=== PATIENT | female | born 1960 | race Caucasian/White ===

== ENCOUNTER 2024-04-11 08:16 | Observation (INO) | payer SELFPAY ==
[~2024-04-11] VITALS: Ht 167.6 cm; Wt 129.3 kg
--- NOTE | 2024-04-11 08:38 | EKG ---
[facility] Test Date: 2024-04-11 Test Time: 08:16:45 Pat Name: OCTAVIA PIZANO Department: ED Room: 427 Gender: F Quality Lab Technician: [id number] : 1960 Requested By: MICHELLE RAMIREZ Order Number: [id number] Reading MD: Dede Weston Measurements Intervals [place] Rate: 80 P: 63 NV: 145 QRS: 17 QRSD: 83 T: 17 QT: 402 QTc: 465 Interpretive Statements Sinus rhythm No previous ECG available for comparison Electronically Signed On 04-13-2024 08:37:52 COMPUTER INFORMATION SYSTEMS PROFESSOR by Dede Weston Please click the below link to view image of tracing.
--- NOTE | 2024-04-11 08:53 | ERN ---
ED Note History of Present Illness Stated Complaint: CHEST PAIN Chief Complaint: Chest Pain Time Seen by MD: 08:46 Dictation: The patient is a 63-year-old female patient with the past medical history of hypertension presented to the emergency department, primarily complaining of chest pain and dizziness. The chest pain, which began today, is characterized as a pressure sensation rated at 6 out of 10, radiating to her left arm. She has experienced dizziness throughout the week, with the initial episode occurring last Monday. The patient describes the sensation as a spinning feeling, prompting her to avoid any head movements. She has recorded elevated blood pressure readings at home over the past week with the highest SBP in 170s. Additionally, she reports feelings of impending faintness and difficulty in articulating her thoughts. The patient has not consulted a healthcare provider in the last four years due to a lack of insurance. She denies any history of acid reflux, shortness of breath, swelling, numbness, or tingling, and has no prior occurrences of similar health issues. She denies any history of alcohol, smoking, or drug abuse. Allergies: Coded Allergies: No Known Drug Allergies (Unverified Allergy, Unknown, 04/11/24) Past Medical History Past Medical History: No Pertinent History Surgical History: Cholecystectomy Review of System Dictation REVIEW OF SYSTEMS CONSTITUTIONAL: Denies fevers, chills, or night sweats. No unintentional weight loss reported. NEUROLOGICAL: Complaints of dizziness, vertigo/spinning sensation, Denies headache, amaurosis fugax, motor weakness, sensory deficit, gait abnormalities, or tremors. ENT: No hearing loss, otalgia, otorrhea, rhinitis, rhinorrhea, hoarseness, or sore throat. CARDIOVASCULAR: Complaints of pressure type of chest pain radiating to the left arm, Denies any exertional angina, dyspnea on exertion, orthopnea, paroxysmal nocturnal dyspnea, palpitations, life-threatening arrhythmias, claudication. PULMONARY: Denies any shortness of breath, cough, phlegm/sputum, hemoptysis, pleuritic chest pain. SLEEP: Denies morning headaches, daytime somnolence or napping. Denies difficulty falling asleep, staying asleep, waking from sleep. Denies knowledge of snoring. GASTROINTESTINAL: Denies any type of dysphagia to either liquids or solids. Denies nausea, vomiting, pyrosis, early satiety, abdominal pain, diarrhea, constipation, or changes in stool consistency or caliber. Denies coffee-ground emesis, hematemesis, hematochezia, or melanotic stools. GENITOURINARY: Denies frequency, urgency, nocturia, hematuria or incontinence (Storage/Irritative symptoms.) Low urinary stream, straining to void, urinary intermittency or hesitancy, splitting of the voiding stream, terminal dribbling. ENDOCRINOLOGIC: Denies polyuria, polydipsia, polyphagia or heat/cold intolerances. HEMATOLOGIC: Denies thrombophilia/previous clots, or coagulopathy/bleeding disorders. ONCOLOGIC: Denies personal history of malignancy. DERMATOLOGIC: Denies rashes or pruritus. PSYCHIATRIC: Denies any suicidal or homicidal ideation. Denies hallucinations. Initial Vital Sign VS Vital Signs Date Time Temp Pulse Resp B/P (MAP) Pulse Ox O2 Delivery O2 Flow Rate FiO2 04/11/24 08:17 97.7 80 16 165/71 98 Room Air 04/11/24 08:21 0 21 Physical Exam Dictation PHYSICAL EXAM GENERAL APPEARANCE: The patient is awake, alert, and oriented, in no acute cardiopulmonary distress. NEUROLOGICAL: Cranial nerves II-XII grossly intact. Motor is 5/5 in bilateral upper and lower extremities proximal to distal. No sensory deficits. HEENT: Face is symmetric. Pupils are equal and reactive. Extraocular movements are intact. NECK: Supple. No JVD. No thyromegaly. No submental, submandibular, pre- /postauricular, occipital or supraclavicular lymphadenopathy. CHEST: Normal chest expansion. No Telemetry. LUNGS: Absence of any rales, rhonchi or any wheezing. CARDIOVASCULAR: Regular. S1 and S2 normal. No appreciable rubs, murmurs or gallops. ABDOMEN: Soft, nontender, and nondistended. There is no rebound, voluntary guarding, or rigidity. : Deferred. No Kin[place]. EXTREMITIES: Non-edematous and not cyanotic. No clubbing. Good capillary refill. SKIN: No skin breakdown. Results (Laboratory/Radiology) Laboratory/Radiology Laboratory Tests Test 04/11/24 09:13 04/11/24 10:06 04/11/24 12:13 White Blood Count 8.1 K/uL (4.8-10.8) Red Blood Count 4.98 MIL/uL (4.00-5.50) Hemoglobin 15.6 g/dL (12.0-16.0) Hematocrit 45.6 % (36-48) Mean Corpuscular Volume 91.6 fL (79-99) Mean Corpuscular Hemoglobin 31.3 pg (27.0-33.0) Mean Corpuscular Hemoglobin Concent 34.2 g/dL (32.0-36.0) Red Cell Distribution Width 12.9 % (11.0-15.5) Platelet Count 278 K/uL (130-400) Mean Platelet Volume 10.2 fL (7.5-10.5) Immature Granulocyte % (Auto) 0.4 % (0-1) Neutrophils (%) (Auto) 49.6 % (40.0-77.0) Lymphocytes (%) (Auto) 40.1 % (21.0-51.0) Monocytes (%) (Auto) 7.3 % (3.0-13.0) Eosinophils (%) (Auto) 1.9 % (0.0-8.0) Basophils (%) (Auto) 0.7 % (0.0-5.0) Neutrophils # (Auto) 4.0 K/uL (1.8-7.7) Lymphocytes # (Auto) 3.2 K/uL (1.0-4.8) Monocytes # (Auto) 0.6 K/uL (0.1-1.0) Eosinophils # (Auto) 0.15 K/uL (0.00-0.70) Basophils # (Auto) 0.06 K/uL (0.00-0.20) Absolute Immature Granulocyte (auto 0.03 K/uL (0-1) Nucleated Red Blood Cells 0.0 % (0.0-0.19) Erythrocyte Sedimentation Rate 16 MM/HR (0-30) Prothrombin Time 11.2 SEC (9.6-11.6) Prothromb Time International Ratio 1.06 (0.85-1.15) Activated Partial Thromboplast Time 30.0 SEC (26.3-35.5) Sodium Level 140 mmol/L (136-145) Potassium Level 3.6 mmol/L (3.5-5.1) Chloride Level 102 mmol/L (101-111) Carbon Dioxide Level 35 mmol/L (21-32) H Blood Urea Nitrogen 11 mg/dL (7-18) Creatinine 0.8 mg/dL (0.5-1.0) Glomerular Filtration Rate Calc 84 mL/min (>90) Random Glucose 151 mg/dL (70-105) H Hemoglobin A1c 6.4 % (4.0-6.0) H Estimated Average Glucose (eAG) 137 mg/dL (70-126) H Total Calcium 9.0 mg/dL (8.5-10.1) Magnesium Level 2.00 mg/dL (1.80-2.40) Total Bilirubin 0.8 mg/dL (0.2-1.0) Direct Bilirubin 0.2 mg/dL (0.0-0.3) Aspartate Amino Transf (AST/SGOT) 52 U/L (10-37) H Alanine Aminotransferase (ALT/SGPT) 71 U/L (12-78) Alkaline Phosphatase 145 U/L (50-136) H Troponin I High Sensitivity 5 ng/L (4-50) C-Reactive Protein, Quantitative 12.80 mg/L (0.5-3.0) H B-Type Natriuretic Peptide 21 pg/mL (0-100) Total Protein 8.4 g/dL (6.0-8.3) H Albumin 4.0 g/dL (3.5-5.0) Triglycerides Level 118 mg/dL (30-200) Cholesterol Level 204 mg/dL (<200) H LDL Cholesterol 135 mg/dL (0-99) H HDL Cholesterol 57 mg/dL (35-85) Procalcitonin < 0.05 ng/mL (0.05-0.5) L Thyroid Stimulating Hormone (TSH) 2.35 uIU/mL (0.36-3.74) Urine Color LIGHT-YELLOW (YELLOW) Urine Appearance CLOUDY (CLEAR) H Urine pH 6.0 (5.0-8.0) Urine Specific [place] 1.019 (1.001-1.031) Urine Protein 20 mg/dL (NEGATIVE) H Urine Glucose (UA) NEGATIVE mg/dL (NEGATIVE) Urine Ketones NEGATIVE mg/dL (NEGATIVE) Urine Occult Blood NEGATIVE (NEGATIVE) Urine Nitrate NEGATIVE (NEGATIVE) Urine Bilirubin NEGATIVE mg/dL (NEGATIVE) Urine Urobilinogen 0.2 mg/dL (0.2-1.0) Urine Leukocyte Esterase 75 [place]/uL (NEGATIVE) H Urine RBC 2-5 /HPF (0-1) H Urine WBC 11-25 /HPF (0-1) H Urine Squamous Epithelial Cells MANY /HPF (0-2) Urine Bacteria FEW /HPF (None Seen) Blood Gas Specimen Type Venous Arterial Blood Oxygen Saturation 81.1 % (94.0-98.0) L Venous Blood pH 7.405 (7.320-7.430) Venous Blood pCO2 at Patient Temp 38 (38-54) Venous Blood pO2 at Patient Temp 42.7 mmHg (23.0-48.0) Venous Blood HCO3 23.0 (22.0-29.0) Venous Blood Base Excess -1.3 (-2.0-3.0) Venous Blood Total Hemoglobin 16.1 (12.0-16.0) H Sodium (Blood Gas) 140 MMOL/L (136-145) Bedside Potassium (Blood Gas) 4.8 MMOL/L (3.4-4.5) H Bedside Chloride (Blood Gas) 103 MMOL/L (98-107) Bedside Glucose (Blood Gas) 114 MG/DL (65-95) H Bedside Ionized Calcium (Blood Gas) 1.11 MMOL/L (1.15-1.33) L Bedside Lactic Acid (Blood Gas) 1.35 MMOL/L (0.36-0.75) H Blood Gas Temperature 37.0 CELSIUS (35.5-37.0) Blood Gas Vent Mode RA (ROOM AIR) FiO2 21.0 % Blood Gas Specimen Comment NANO EMELY EKG Comment: Rate 80, sinus rhythm, normal P axis FL 145 QT for 0 2 X-RAY Comment: [address] [id number] IMAGING REPORT Signed PATIENT: OCTAVIA PIZANO MR#: [id number] : 1960 SEX: F AGE: 63 LOCATION: [facility] ORDER 8 STATUS: REG ER REPORT#: [id number] SERVICE 7 REASON: CP ORDERING PHYSICIAN: MICHELLE RAMIREZ DO PROCEDURE: CXR1VW - CHEST 1VW CHEST 1VW HISTORY: Chest pain COMPARISON: None FINDINGS: A frontal projection of the chest was obtained. No acute pulmonary infiltrates is seen. The heart is normal in size. Degenerative changes are seen. Prominent interstitial markings are seen. No evidence of aortic calcification is seen. IMPRESSION: 1. No acute pulmonary infiltrate is seen. DICTATED BY: ZACHERY LUGO MD DATE: 04/11/24 1112 ELECTRONICALLY SIGNED BY: ZACHERY LUGO MD DATE: 04/11/[address] Scan Comment: [place] [id number] [place] [id number] IMAGING REPORT Signed PATIENT: OCTAVIA PIZANO MR#: [id number] : 1960 SEX: F AGE: 63 LOCATION: [facility] ORDER 1 STATUS: REG ER REPORT#: [id number] SERVICE 0850 REASON: Dizziness since 7 days ORDERING PHYSICIAN: FLOR GILL MD PROCEDURE: HEAD WO - CT HEAD/BRAIN W/O CONTRAST CT HEAD/BRAIN W/O CONTRAST HISTORY: Dizziness COMPARISON: None TECHNIQUE: Multiple sequential axial images of the head were obtained from the base of the skull through vertex. Patient was not given contrast through intravenous route. FINDINGS: The ventricles and extraventricular CSF spaces are nondilated for patient's age. There is no midline shift, mass effect or herniation. No acute intracranial bleed is seen. Visualized portion of the paranasal sinuses are grossly within normal limits. IMPRESSION: 1. No acute intracranial bleed is seen. CT was performed with one or more following dose reduction techniques: automated exposure control, adjustment of the mA and kv according to patient's size, or use of a iterative reconstruction technique. DICTATED BY: ZACHERY LUGO MD DATE: 04/11/24 1024 ELECTRONICALLY SIGNED BY: ZACHERY LUGO MD DATE: 04/11/24 1027 ED Course ED Course Orders Procedure Category Date Status Time Cbc With Differential LAB 04/11/24 Complete 08:18 B-Type Natriuretic LAB 04/11/24 Complete Peptide 08:18 Chest 1vw RAD 04/11/24 Resulted 08:18 12 Lead Ekg Tracing- EKG 04/11/24 Complete Technical 08:18 Magnesium LAB 04/11/24 Complete 08:18 Troponin I High LAB 04/11/24 Complete Sensitivity 08:18 Basic Metabolic Panel LAB 04/11/24 Complete 08:18 Ct Head/Brain W/O CT 04/11/24 Resulted Contrast 08:50 Urinalysis Profile LAB 04/11/24 Complete 08:50 Meclizine Hcl 12.5 Mg PHA 04/11/24 Complete (Antivert 12.5 Mg) 09:00 Pt And Ptt LAB 04/11/24 Complete 09:06 Culture Urine TY 04/11/24 In Process 10:25 0.9%Nacl 1000ml (Ns PHA 04/11/24 In Process 1000ml) 12:00 Admit Orders ADM 04/11/24 Transmitted 11:42 Ceftriaxone 1g Vial PHA 04/11/24 In Process (Rocephine 1g Inj) 12:00 Us Carotid Duplex US 04/11/24 Logged 11:43 Thyroid Stimulating LAB 04/11/24 Complete Hormone 11:43 Hemoglobin A1c LAB 04/11/24 Complete 11:43 Lipid Panel LAB 04/11/24 Complete 11:43 Orthostatic Vital CPOE 04/11/24 Transmitted Signs 11:43 Hepatic Function Panel LAB 04/11/24 Complete 11:43 Cardiology Consult CONPHYSVC 04/11/24 Transmitted 11:43 Neurology Consult CONPHYSVC 04/11/24 Transmitted 11:43 Venous Blood Gas + RT 04/11/24 Transmitted 11:48 Erythrocyte LAB 04/11/24 Complete Sedimentation Rate 11:48 Procalcitonin LAB 04/11/24 Complete 11:48 Clear Liquid DIET 04/11/24 Transmitted Lunch Fall Precautions CPOE 04/11/24 Transmitted 11:48 Aspiration Precautions CPOE 04/11/24 Transmitted 11:48 Elevate Hob At 30 CPOE 04/11/24 Transmitted Degrees 11:48 Acetaminophen 325 Tab PHA 04/11/24 In Process (Tylenol 325mg Tab 12:00 Cardiac Panel LAB 04/11/24 Logged 14:00 Cardiac Panel LAB 04/11/24 Logged 20:00 Cardiac Panel LAB 04/12/24 Verified 02:00 Nitroglycerin 0.4mg PHA 04/11/24 In Process Sl Tab (Nitrostat) 12:00 Mr Brain Wo Con MRI 04/11/24 Taken 11:51 Pt Eval And Treat PT 04/11/24 Transmitted 11:51 Scd Both Legs While CPOE 04/11/24 Transmitted In Bed 11:51 Enoxaparin Sodium 40 PHA 04/12/24 In Process Mg/0.4 Ml (Lovenox) 09:00 Venous Blood Gas Plus LAB 04/11/24 Complete 12:13 Crp Quantitative LAB 04/11/24 Complete 09:13 Labetalol 20mg Syg PHA 04/11/24 In Process (Trandate 20mg Syg) 12:30 Losartan 50 Mg Tablet PHA 04/12/24 In Process (Cozaar 50 Mg Tab) 09:00 Cbc With Differential LAB 04/12/24 Verified 04:00 Basic Metabolic Panel LAB 04/12/24 Verified 04:00 Magnesium LAB 04/12/24 Verified 04:00 Echo 2-D Complete ECHO 04/11/24 Logged 12:56 Current Medications Medications (Trade) Dose Ordered Sig/Dora Route PRN Reason Start Time Stop Time Status Last Admin Dose Admin Acetaminophen (TYLenol 325MG TAB) 650 mg Q6H PRN PO MILD PAIN (1-3) 04/11/24 12:00 05/11/24 11:59 Ceftriaxone Sodium (ROCEphine 1G INJ) 1 gm Q24H IVPB 04/11/24 12:00 04/21/24 11:59 04/11/24 11:58 Enoxaparin Sodium (Lovenox) 40 mg DAILY SQ 04/12/24 09:00 05/12/24 08:59 Labetalol HCl (TRANdate 20MG SYG) 10 mg Q6H PRN IV for SBP> 170 04/11/24 12:30 05/11/24 12:29 Losartan Potassium (CozAAR 50 mg TAB) 50 mg DAILY PO 04/12/24 09:00 05/12/24 08:59 Meclizine HCl (ANTIvert 12.5 mg) 12.5 mg ONCE ONCE PO 04/11/24 09:00 04/11/24 09:01 DC 04/11/24 10:13 Nitroglycerin (Nitrostat) 0.4 mg AD PRN SL CHEST PAIN 04/11/24 12:00 05/11/24 11:59 Sodium Chloride 1,000 ml @ 50 mls/hr Q20H IV 04/11/24 12:00 05/11/24 11:59 04/11/24 11:47 Vital Signs Date Time Temp Pulse Resp B/P (MAP) Pulse Ox O2 Delivery O2 Flow Rate FiO2 04/11/24 10:28 98.8 76 14 172/64 99 Room Air* 0 21 04/11/24 08:21 97.7 80 16 165/71 98 Room Air* 0 21 04/11/24 08:17 97.7 80 16 165/71 98 Room Air 08:30 The patient was assessed in Emergency Department triage room 2. She appears to be in some distress. Hemodynamically, she is stable, with a temperature of 97.7F, a pulse rate of 80 beats per minute, a respiratory rate of 16 breaths per minute, and a blood pressure reading of 165/71 mmHg. The electrocardiogram indicated a rate of 80 with a sinus rhythm. We will proceed with ordering basic laboratory tests and a cardiac evaluation to exclude any acute cardiac events. Additionally, a CT scan of the head and brain without contrast will be requested to investigate the underlying causes of her persistent dizziness. The patient may have vertigo based on the description of symptoms, We will give meclizine 12.5 mg and reassess for any improvement. However TIA/posterior stroke has not ruled out. Once the laboratory results and imaging studies are available, we will determine whether the patient requires inpatient treatment or hospitalization. Continuous monitoring of the patient will be maintained. 11:30 labs and radiology investigations are returned. CT head was negative for intracranial bleed, Labs showed BUN 35, Urinalysis showed cloudy appearance, leukocyte esterase 75, urine WBC 11-25, many squamous epithelial cells. The patient reported somewhat improvement after meclizine 12.5 mg. Given the history of dizziness for the past 7 days and difficulty in finding words, we think that the patient requires inpatient hospitalization and requires more workup for further evaluation of dizziness. The hospitalist on-call was informed about the case and accepted the admission. Medical Decision Making [facility] Differential diagnosis: Vertigo, benign paroxysmal positional vertigo, dizziness, chest pain rule out cardiac etiology, UTI Rationale: Tests considered and ordered secondary to shared decision making include: Previous outside records reviewed: Old ER visits. Risk of complication and/or morbidity or mortality of patient management: None Medications-Per medication reconciliation Need for hospitalization: Patient does meet criteria for hospitalization. Need for emergency major/minor surgery: No There are no social concerns with this patient. Prescription drug management Prescriptions will include symptomatic care Patient's prior external medical records from other ER visits were reviewed by me as indicated. Prior testing and results from previous visits were reviewed. Prior tests were taken into account with medical decision making and resource ut ilization, independent historian/historians were used to obtain complete medical history. I independently interpreted the test that were performed, results were reviewed by me and considered findings on radiology if ordered. DX & DISP Disposition: Inpatient Departure Impression: Primary Impression: Vertigo Additional Impressions: BPPV (benign paroxysmal positional vertigo), Dizziness, Chest pain, Urinary tract infection Condition: Stable Referrals: SELF,REFERRAL (PCP) I have reviewed the case, and I agree with, Diagnosis and Plan I have examined patient, & reviewed all documents, & agreed W/ the Diagnosis, and Plan ATTESTATION BY PHYSICIAN I have seen and examined the patient. I reviewed the documentation, medical decision making, and treatment plan as noted by the resident provider above. I agree with the findings and plan of care. Alcides Victor MD, MANALI MD Apr 11, 2024 08:53 MICHELLE RAMIREZ DO Apr 11, 2024 13:42
[2024-04-11 09:31] LABS: BASOPHILS # (AUTO) 0.06 K/uL (0.00-0.20); BASOPHILS % (AUTO) 0.7 % (0.0-5.0); EOSINOPHILS # (AUTO) 0.15 K/uL (0.00-0.70); EOSINOPHILS % (AUTO) 1.9 % (0.0-8.0); HEMATOCRIT 45.6 % (36-48); IMMATURE GRANULOCYTE ABSOLUTE 0.03 K/uL (0-1); LYMPHOCYTES # (AUTO) 3.2 K/uL (1.0-4.8); LYMPHOCYTES % (AUTO) 40.1 % (21.0-51.0); MEAN CORPUSCULAR HEMOGLOBIN 31.3 pg (27.0-33.0); MEAN CORPUSCULAR HGB CONC 34.2 g/dL (32.0-36.0); MEAN CORPUSCULAR VOLUME 91.6 fL (79-99); MONOCYTES # (AUTO) 0.6 K/uL (0.1-1.0); MONOCYTES % (AUTO) 7.3 % (3.0-13.0); NEUTROPHILS % (AUTO) 49.6 % (40.0-77.0); PLATELET COUNT (AUTO) 278 K/uL (130-400); RED BLOOD CELL COUNT(AUTO) 4.98 MIL/uL (4.00-5.50); RED CELL DISTRIBUTION WIDTH 12.9 % (11.0-15.5); WHITE BLOOD COUNT (AUTO) 8.1 K/uL (4.8-10.8)
[2024-04-11 09:39] LABS: CREATININE 0.8 mg/dL (0.5-1.0); POTASSIUM 3.6 mmol/L (3.5-5.1)
[2024-04-11 09:42] LABS: INR 1.06 (0.85-1.15); PROTHROMBIN TIME 11.2 SEC (9.6-11.6)
[2024-04-11 09:56] LABS: B-TYPE NATRIURETIC PEPTIDE 21 pg/mL (0-100)
[2024-04-11] MEDS: mecliZINE HCL 12.5 MG TABLET PO ONE (10:13)
[2024-04-11 10:23] LABS: APPEARANCE,URINE CLOUDY (CLEAR); BILIRUBIN,URINE NEGATIVE (NEGATIVE); COLOR,URINE LIGHT-YELLOW (YELLOW); GLUCOSE, URINE (UA) NEGATIVE (NEGATIVE); KETONES,URINE NEGATIVE (NEGATIVE); LEUKOCYTE ESTERASE ,URINE 75 Leu/uL (NEGATIVE); NITRATE,URINE NEGATIVE (NEGATIVE); OCCULT BLOOD,URINE NEGATIVE (NEGATIVE); PROTEIN,URINE 20 mg/dL (NEGATIVE); UROBILINOGEN,URINE 0.2 mg/dL (0.2-1.0)
[2024-04-11 10:25] LABS: ADD UA MICROSCOPIC YES
--- NOTE | 2024-04-11 10:27 | HMCIMG ---
CT HEAD/BRAIN W/O CONTRAST HISTORY: Dizziness COMPARISON: None TECHNIQUE: Multiple sequential axial images of the head were obtained from the base of the skull through vertex. Patient was not given contrast through intravenous route. FINDINGS: The ventricles and extraventricular CSF spaces are nondilated for patient's age. There is no midline shift, mass effect or herniation. No acute intracranial bleed is seen. Visualized portion of the paranasal sinuses are grossly within normal limits. IMPRESSION: 1. No acute intracranial bleed is seen. CT was performed with one or more following dose reduction techniques: automated exposure control, adjustment of the mA and kv according to patient's size, or use of a iterative reconstruction technique.
[2024-04-11 10:34] LABS: BACTERIA,URINE FEW /HPF (None Seen); MUCUS,URINE RARE LPF (None Seen); SQUAMOUS EPITHELIAL CELL,UR MANY /HPF (0-2)
--- NOTE | 2024-04-11 11:15 | HMCIMG ---
CHEST 1VW HISTORY: Chest pain COMPARISON: None FINDINGS: A frontal projection of the chest was obtained. No acute pulmonary infiltrates is seen. The heart is normal in size. Degenerative changes are seen. Prominent interstitial markings are seen. No evidence of aortic calcification is seen. IMPRESSION: 1. No acute pulmonary infiltrate is seen.
[2024-04-11] MEDS: 0.9%NACL 1000ML 1,000 ML IV SCH (11:47)
[2024-04-11] MEDS: cefTRIAXone 1G VIAL IVPB SCH (11:58)
[2024-04-11] MEDS ORDERED: NITROGLYCERIN 0.4 MG SL TAB SL PRN (12:00)
[2024-04-11] MEDS ORDERED: acetaMINOPHEN 325 MG TAB PO PRN (12:00)
[2024-04-11 12:14] LABS: ABG OXYGEN SATURATION 81.1 % (94.0-98.0); BASE EXCESS,VENOUS BLOOD GAS -1.3 (-2.0-3.0); DEVICE COMMENT VEN VERO; PCO2,VENOUS BLOOD GAS 38 (38-54); PH,VENOUS BLOOD GAS 7.405 (7.320-7.430); PO2,VENOUS BLOOD GAS 42.7 mmHg (23.0-48.0); VENT MODE, BG RA (ROOM AIR)
--- NOTE | 2024-04-11 12:24 | HP ---
[facility] HISTORY [facility] PHYSICAL Date of Service: Apr 11, 2024 Time of Service: 12:17 HISTORY OF PRESENT ILLNESS: Date of service: 04/11/2024, patient was seen in ER room one 63-year-old female with underlying history of obesity, presented to the ER for further evaluation of dizziness and vertiginous symptoms and chest pain. Patient states that symptoms of dizziness has been ongoing for the past one week. She reports having Lightheadedness with exertional activities. She also has noticed vertiginous symptoms when she changes positions fast. Symptoms have not been resolving prompting her to come to the ER for further evaluation. She denies any significant weakness of upper or lower extremities. Denies any previous history of cardiac or neurologic comorbidities. Patient states that while she was coming to the ER, she noticed she started having left-sided chest pain/chest pressure lasting for about 45 minutes moderate in intensity. The pain was going into her left shoulder and patient denies any previous symptoms of chest pain. Patient does report having family history of both mother and father with cardiac comorbidities. Both mom and dad required pacemaker placement and father needed bypass surgery in his 60s. Patient has noticed that her blood pressure has been running high and she took a dose of lisinopril 5 mg from her sister's medication today. On presentation to the hospital, patient was noted to be afebrile with T-max of 97.7 F, heart rate of 80, blood pressure of 165/71. Labs on presentation showed WBC count of 8100, hemoglobin of 15.6, platelet count of [id number]. BMP is remarkable for sodium of 140, potassium 3.6, CO2 of 35, creatinine of 0.8, blood glucose of 151, magnesium of two, cardiac troponin of five, BNP of 21. Patient underwent further evaluation with CT of the head without contrast which showed no intracranial bleed. Chest x-ray showed no acute infiltrates. Patient will undergo further diagnostic evaluation for further evaluation of persistent lightheadedness/vertiginous symptoms. We will rule out signs of CVA. We will have Cardiology follow up for cardiac workup. REVIEW OF SYSTEMS CONSTITUTIONAL: Denies fevers, chills, or night sweats. No unintentional weight loss reported. NEUROLOGICAL: Persistent lightheadedness, dizziness, trouble finding words ENT: No hearing loss, otalgia, otorrhea, rhinitis, rhinorrhea, hoarseness, or sore throat. CARDIOVASCULAR: Left-sided chest pain/chest pressure when coming to [facility] [place] PULMONARY: Denies any shortness of breath, cough, phlegm/sputum, hemoptysis, pleuritic chest pain. SLEEP: Denies morning headaches, daytime somnolence or napping. Denies difficulty falling asleep, staying asleep, waking from sleep. Denies knowledge of snoring. GASTROINTESTINAL: Denies any type of dysphagia to either liquids or solids. Denies nausea, vomiting, pyrosis, early satiety, abdominal pain, diarrhea, constipation, or changes in stool consistency or caliber. Denies coffee-ground emesis, hematemesis, hematochezia, or melanotic stools. GENITOURINARY: Denies frequency, urgency, nocturia, hematuria or incontinence (Storage/Irritative symptoms.) Low urinary stream, straining to void, urinary intermittency or hesitancy, splitting of the voiding stream, terminal dribbling. ENDOCRINOLOGIC: Denies polyuria, polydipsia, polyphagia or heat/cold intolerances. HEMATOLOGIC: Denies thrombophilia/previous clots, or coagulopathy/bleeding disorders. ONCOLOGIC: Denies personal history of malignancy. DERMATOLOGIC: Denies rashes or pruritus. PSYCHIATRIC: Denies any suicidal or homicidal ideation. Denies hallucinations. 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 Father needed bypass surgery in his 60s. Siblings have history of hypertension and diabetes and hypothyroidism Coded Allergies: No Known Drug Allergies (Unverified Allergy, Unknown, 04/11/24) PHYSICAL EXAM GENERAL APPEARANCE: The patient is awake, alert, and oriented, in no acute cardiopulmonary distress. Patient is morbidly obese. NEUROLOGICAL: Cranial nerves II-XII grossly intact. Motor is 5/5 in bilateral upper and lower extremities proximal to distal. No sensory deficits. HEENT: Face is symmetric. Pupils are equal and reactive. Extraocular movements are intact. NECK: Supple. No JVD. No thyromegaly. No submental, submandibular, pre- /postauricular, occipital or supraclavicular lymphadenopathy. CHEST: Normal chest expansion. No Telemetry. LUNGS: Absence of any rales, rhonchi or any wheezing. CARDIOVASCULAR: Regular. S1 and S2 normal. No appreciable rubs, murmurs or gallops. ABDOMEN: Soft, nontender, and nondistended. There is no rebound, voluntary guarding, or rigidity. : Deferred. No Kinney. EXTREMITIES: Non-edematous and not cyanotic. No clubbing. Good capillary refill. SKIN: No skin breakdown. Vital Sign (Last 24 Hours) 04/11/24 10:28 Temp 98.8 Pulse 76 Resp 14 B/P (MAP) 172/64 Pulse Ox 99 O2 Delivery Room Air* O2 Flow Rate 0 FiO2 21 LABS: Laboratory: Test 04/11/24 12:13 04/11/24 10:06 04/11/24 09:13 Range/Units Blood Gas Specimen Type Venous Arterial Blood Oxygen Saturation 81.1 L 94.0-98.0 % Venous Blood pH 7.405 7.320-7.430 Venous Blood pCO2 at Patient Temp 38 38-54 Venous Blood pO2 at Patient Temp 42.7 23.0-48.0 mmHg Venous Blood HCO3 23.0 22.0-29.0 Venous Blood Base Excess -1.3 -2.0-3.0 Venous Blood Total Hemoglobin 16.1 H 12.0-16.0 Sodium (Blood Gas) 140 136-145 MMOL/L Bedside Potassium (Blood Gas) 4.8 H 3.4-4.5 MMOL/L Bedside Chloride (Blood Gas) 103 98-107 MMOL/L Bedside Glucose (Blood Gas) 114 H 65-95 MG/DL Bedside Ionized Calcium (Blood Gas) 1.11 L 1.15-1.33 MMOL/L Bedside Lactic Acid (Blood Gas) 1.35 H 0.36-0.75 MMOL/L Blood Gas Temperature 37.0 35.5-37.0 CELSIUS Blood Gas Vent Mode RA ROOM AIR FiO2 21.0 % Blood Gas Specimen Comment NANO EMELY Urine Color LIGHT-YELLOW YELLOW Urine Appearance CLOUDY H CLEAR Urine pH 6.0 5.0-8.0 Urine Specific [place] 1.019 1.001-1.031 Urine Protein 20 H NEGATIVE mg/dL Urine Glucose (UA) NEGATIVE NEGATIVE mg/dL Urine Ketones NEGATIVE NEGATIVE mg/dL Urine Occult Blood NEGATIVE NEGATIVE Urine Nitrate NEGATIVE NEGATIVE Urine Bilirubin NEGATIVE NEGATIVE mg/dL Urine Urobilinogen 0.2 0.2-1.0 mg/dL Urine Leukocyte Esterase 75 H NEGATIVE [place]/uL Urine RBC 2-5 H 0-1 /HPF Urine WBC 11-25 H 0-1 /HPF Urine Squamous Epithelial Cells MANY 0-2 /HPF Urine Bacteria FEW None Seen /HPF White Blood Count 8.1 4.8-10.8 K/uL Red Blood Count 4.98 4.00-5.50 MIL/uL Hemoglobin 15.6 12.0-16.0 g/dL Hematocrit 45.6 36-48 % Mean Corpuscular Volume 91.6 79-99 fL Mean Corpuscular Hemoglobin 31.3 27.0-33.0 pg Mean Corpuscular Hemoglobin Concent 34.2 32.0-36.0 g/dL Red Cell Distribution Width 12.9 11.0-15.5 % Platelet Count 278 130-400 K/uL Mean Platelet Volume 10.2 7.5-10.5 fL Immature Granulocyte % (Auto) 0.4 0-1 % Neutrophils (%) (Auto) 49.6 40.0-77.0 % Lymphocytes (%) (Auto) 40.1 21.0-51.0 % Monocytes (%) (Auto) 7.3 3.0-13.0 % Eosinophils (%) (Auto) 1.9 0.0-8.0 % Basophils (%) (Auto) 0.7 0.0-5.0 % Neutrophils # (Auto) 4.0 1.8-7.7 K/uL Lymphocytes # (Auto) 3.2 1.0-4.8 K/uL Monocytes # (Auto) 0.6 0.1-1.0 K/uL Eosinophils # (Auto) 0.15 0.00-0.70 K/uL Basophils # (Auto) 0.06 0.00-0.20 K/uL Absolute Immature Granulocyte (auto 0.03 0-1 K/uL Nucleated Red Blood Cells 0.0 0.0-0.19 % Prothrombin Time 11.2 9.6-11.6 SEC Prothromb Time International Ratio 1.06 0.85-1.15 Activated Partial Thromboplast Time 30.0 26.3-35.5 SEC Sodium Level 140 136-145 mmol/L Potassium Level 3.6 3.5-5.1 mmol/L Chloride Level 102 101-111 mmol/L Carbon Dioxide Level 35 H 21-32 mmol/L Blood Urea Nitrogen 11 7-18 mg/dL Creatinine 0.8 0.5-1.0 mg/dL Glomerular Filtration Rate Calc 84 >90 mL/min Random Glucose 151 H 70-105 mg/dL Total Calcium 9.0 8.5-10.1 mg/dL Magnesium Level 2.00 1.80-2.40 mg/dL Troponin I High Sensitivity 5 4-50 ng/L B-Type Natriuretic Peptide 21 0-100 pg/mL Current Medications Medications (Trade) Dose Ordered Sig/Dora Route PRN Reason Start Time Stop Time Status Last Admin Dose Admin Acetaminophen (TYLenol 325MG TAB) 650 mg Q6H PRN PO MILD PAIN (1-3) 04/11/24 12:00 05/11/24 11:59 Ceftriaxone Sodium (ROCEphine 1G INJ) 1 gm Q24H IVPB 04/11/24 12:00 04/21/24 11:59 04/11/24 11:58 1 GM Enoxaparin Sodium (Lovenox) 40 mg DAILY SQ 04/12/24 09:00 05/12/24 08:59 Nitroglycerin (Nitrostat) 0.4 mg AD PRN SL CHEST PAIN 04/11/24 12:00 05/11/24 11:59 Sodium Chloride 1,000 ml @ 50 mls/hr Q20H IV 04/11/24 12:00 05/11/24 11:59 04/11/24 11:47 50 MLS/HR DIAGNOSTICS / RADIOLOGY: SERVICE 0850 REASON: Dizziness since 7 days ORDERING PHYSICIAN: FLOR GILL MD PROCEDURE: HEAD WO - CT HEAD/BRAIN W/O CONTRAST CT HEAD/BRAIN W/O CONTRAST HISTORY: Dizziness COMPARISON: None TECHNIQUE: Multiple sequential axial images of the head were obtained from the base of the skull through vertex. Patient was not given contrast through intravenous route. FINDINGS: The ventricles and extraventricular CSF spaces are nondilated for patient's age. There is no midline shift, mass effect or herniation. No acute intracranial bleed is seen. Visualized portion of the paranasal sinuses are grossly within normal limits. IMPRESSION: 1. No acute intracranial bleed is seen. CT was performed with one or more following dose reduction techniques: automated exposure control, adjustment of the mA and kv according to patient's size, or use of a iterative reconstruction technique. DICTATED BY: ZACHERY LUGO MD DATE: 04/11/24 1024 ELECTRONICALLY SIGNED BY: ZACHERY LUGO MD DATE: 04/11/24 1027 ASSESSMENT: Persistent nonresolving dizziness/lightheadedness with vertiginous symptoms, POA Mild urinary tract infection, POA Uncontrolled hypertension, POA Obesity, POA Suspected obstructive sleep apnea, POA Family history of coronary artery disease, POA Chest pain x1 day, POA PLAN: 63-year-old female presenting to the hospital with symptoms of lightheadedness/d izziness x1 week which has been nonresolving with associated chest pain Patient will be admitted to medical-surgical floor under telemetry monitoring With regards to lightheadedness/dizziness with vertiginous symptoms, we will rule out central causes of vertigo and we will obtain MRI brain to rule out signs of posterior circulation stroke. Other differential remains inner ear iss ues including benign positional vertigo, labyrinthitis etc.. Patient took sister's home dose of lisinopril today, will start losartan 25 mg bid for management of HTN We will have Neurology follow up with this patient Obtain carotid ultrasound to rule out significant carotid artery stenosis We will trend cardiac panel to rule out ACS We will obtain a 2D echocardiogram We will check TSH, lipid panel, A1c We will obtain a venous blood gas to rule out any significant acidosis or hypercapnia Discussed patient's case with Dr. Lindo for cardiac risk stratification We will follow up urine culture, we will start patient on IV Rocephin 1 g daily We will see how patient progresses in the next 24-48 hours, we will request physical therapy evaluation as well Labs will be repeated in the morning, Shane Huertas MD Advanced Care Planning: Which of the following were discussed: Hospice care: Yes __ No _X_ Therapeutic options: Yes _X_ No __ Advance directives: Yes _X_ No __ Other discussions: Discussed with who?: Patient Voluntary nature of this service was explained to the patient? Yes _x_ No __ Amount of time spent: 20 minutes SHANE HUERTAS MD Apr 11, 2024 12:24
[2024-04-11 12:30] LABS: HEMOGLOBIN A1C 6.4 % (4.0-6.0)
[2024-04-11] MEDS ORDERED: LAbetaLOL 20MG SYG IV PRN (12:30)
[2024-04-11 12:50] LABS: BILIRUBIN,DIRECT 0.2 mg/dL (0.0-0.3); BILIRUBIN,TOTAL 0.8 mg/dL (0.2-1.0); THYROID STIMULATING HORMONE 2.35 uIU/mL (0.36-3.74); TOTAL PROTEIN, SERUM 8.4 g/dL (6.0-8.3)
--- NOTE | 2024-04-11 14:01 | HMCIMG ---
US CAROTID DUPLEX HISTORY: Persistent dizziness COMPARISON: None TECHNIQUE: Duplex carotid arterial Doppler ultrasound study was performed. FINDINGS: The common, internal and external carotid arteries are visualized. The peak systolic velocities of right common carotid artery is 69 centimeters per second, right internal carotid artery is 107 centimeters per second, right external carotid artery is 100 centimeters per second, and right vertebral artery is 37 centimeters per second. Right internal carotid artery to right common carotid artery ratio is 1.6. Right vertebral artery is seen with antegrade flow. The peak systolic velocities of left common carotid artery is 668 centimeters per second, left internal carotid artery is 8 centimeters per second, left external carotid artery is 65 centimeters per second, and left vertebral artery is 29 centimeters per second. Left internal carotid artery to left common carotid artery ratio is 1.3. Left vertebral artery is seen with antegrade flow. There are bilateral echogenic plaques. IMPRESSION: 1. No hemodynamically significant lesion is seen of either extracranial carotid artery system.
--- NOTE | 2024-04-11 14:08 | HMCIMG ---
MR BRAIN WO CON HISTORY: Dizziness and vertigo COMPARISON: None TECHNIQUE: MRI of the brain was performed utilizing multiple pulse sequences in axial, coronal and sagittal planes. Patient was not given contrast through intravenous route. FINDINGS: The ventricles and extraventricular CSF spaces are nondilated for patient's age. There is no midline shift, mass effect or herniation. No subacute hemorrhage is seen. No MR evidence of acute infarct is seen in the diffusion weighted images. Cerebellar tonsils are in normal position. No evidence of mucoperiosteal thickening is seen of the visualized paranasal sinuses. No MR evidence of a mass lesion is seen in this noncontrast study. IMPRESSION: 1. No MR evidence of acute infarct is seen in the diffusion weighted images.
--- NOTE | 2024-04-11 15:12 | CONS ---
Cardiology Consult Note Cardiology Attending: Pa Lindo Consulting Physician: Hospitalist Date of Service: 04/11/24 Reason for Consult: Chest Pain HPI: This is a 63-year-old female with no past medical history who presents with dizziness, of one-week induration. The symptoms began spontaneously and over the last week her symptoms remain constant, and occurred on a daily basis. The symptoms were present throughout the day, were exacerbated when she would rise from a seated to a standing position, and would improve/resolve with laying down. Associated symptoms included near-syncope, aphasia, and chest pain. The patient developed chest pain this morning that was described as sharp in quality, 4/10 intensity, with radiation to the left shoulder. The symptoms lasted approximately 1 hour and resolved without any specific treatment. The p atient denies any other active complaints including syncope, palpitations, shortness for breath, dyspnea with exertion, PND, orthopnea, abdominal pain, nausea, vomiting, weight gain, or lower extremity swelling/edema. The persistence of symptoms prompted the patient to come to the hospital further evaluation and treatment. PMH: Listed above PSH: None FH: Significant for CAD, HTN, DMII, and CVA. SH: Denies alcohol, tobacco, or illicit drug use. Allergies: Coded Allergies: No Known Drug Allergies (Unverified Allergy, Unknown, 04/11/24) Review of systems: General: Denies fever or chills HEENT: Denies changes in vision, earache or sore throat Neck: Denies pain or stiffness Cardio: As per the HPI Pulm: Denies SOB, coughing or wheezing GI: Denies abdominal pain, nausea, vomiting, diarrhea, or constipation. MSK: Denies muscle or back pain.. Heme: Denies anemia, easy bruising, or bleeding. Neuro: As per the HPI. Psych: Denies anxiety, depression, or suicidal ideations. Physical Exam: Vital Signs Date Time Temp Pulse Resp B/P (MAP) Pulse Ox O2 Delivery O2 Flow Rate FiO2 04/11/24 10:28 98.8 76 14 172/64 99 Room Air* 0 21 General: Alert and oriented x 3. NAD HEENT: NC/AT. Oral mucosa is moist. Neck: No masses, JVD, or carotid bruits Lungs: NRD. SCM. B/L CTA. No wheezing, rales or rhonchi. Cardio: Rate @ 77bpm. Normal S1 and S2. No S3 or S4 identified. PMI was not displaced. Abdomen: Soft. NT. ND. Normal active bowel sounds x 4 quadrants. Extremities: No edema, clubbing or cyanosis. +2 pulses noted throughout. Neuro: CN II-XII were grossly intact. No focal deficits. Labs: Laboratory Tests Test 04/11/24 09:13 04/11/24 10:06 04/11/24 12:13 Range/Units White Blood Count 8.1 4.8-10.8 K/uL Red Blood Count 4.98 4.00-5.50 MIL/uL Hemoglobin 15.6 12.0-16.0 g/dL Hematocrit 45.6 36-48 % Mean Corpuscular Volume 91.6 79-99 fL Mean Corpuscular Hemoglobin 31.3 27.0-33.0 pg Mean Corpuscular Hemoglobin Concent 34.2 32.0-36.0 g/dL Red Cell Distribution Width 12.9 11.0-15.5 % Platelet Count 278 130-400 K/uL Mean Platelet Volume 10.2 7.5-10.5 fL Immature Granulocyte % (Auto) 0.4 0-1 % Neutrophils (%) (Auto) 49.6 40.0-77.0 % Lymphocytes (%) (Auto) 40.1 21.0-51.0 % Monocytes (%) (Auto) 7.3 3.0-13.0 % Eosinophils (%) (Auto) 1.9 0.0-8.0 % Basophils (%) (Auto) 0.7 0.0-5.0 % Neutrophils # (Auto) 4.0 1.8-7.7 K/uL Lymphocytes # (Auto) 3.2 1.0-4.8 K/uL Monocytes # (Auto) 0.6 0.1-1.0 K/uL Eosinophils # (Auto) 0.15 0.00-0.70 K/uL Basophils # (Auto) 0.06 0.00-0.20 K/uL Absolute Immature Granulocyte (auto 0.03 0-1 K/uL Nucleated Red Blood Cells 0.0 0.0-0.19 % Erythrocyte Sedimentation Rate 16 0-30 MM/HR Prothrombin Time 11.2 9.6-11.6 SEC Prothromb Time International Ratio 1.06 0.85-1.15 Activated Partial Thromboplast Time 30.0 26.3-35.5 SEC Sodium Level 140 136-145 mmol/L Potassium Level 3.6 3.5-5.1 mmol/L Chloride Level 102 101-111 mmol/L Carbon Dioxide Level 35 H 21-32 mmol/L Blood Urea Nitrogen 11 7-18 mg/dL Creatinine 0.8 0.5-1.0 mg/dL Glomerular Filtration Rate Calc 84 >90 mL/min Random Glucose 151 H 70-105 mg/dL Hemoglobin A1c 6.4 H 4.0-6.0 % Estimated Average Glucose (eAG) 137 H 70-126 mg/dL Total Calcium 9.0 8.5-10.1 mg/dL Magnesium Level 2.00 1.80-2.40 mg/dL Total Bilirubin 0.8 0.2-1.0 mg/dL Direct Bilirubin 0.2 0.0-0.3 mg/dL Aspartate Amino Transf (AST/SGOT) 52 H 10-37 U/L Alanine Aminotransferase (ALT/SGPT) 71 12-78 U/L Alkaline Phosphatase 145 H 50-136 U/L Troponin I High Sensitivity 5 4-50 ng/L C-Reactive Protein, Quantitative 12.80 H 0.5-3.0 mg/L B-Type Natriuretic Peptide 21 0-100 pg/mL Total Protein 8.4 H 6.0-8.3 g/dL Albumin 4.0 3.5-5.0 g/dL Triglycerides Level 118 30-200 mg/dL Cholesterol Level 204 H <200 mg/dL LDL Cholesterol 135 H 0-99 mg/dL HDL Cholesterol 57 35-85 mg/dL Procalcitonin < 0.05 L 0.05-0.5 ng/mL Thyroid Stimulating Hormone (TSH) 2.35 0.36-3.74 uIU/mL Urine Color LIGHT-YELLOW YELLOW Urine Appearance CLOUDY H CLEAR Urine pH 6.0 5.0-8.0 Urine Specific [place] 1.019 1.001-1.031 Urine Protein 20 H NEGATIVE mg/dL Urine Glucose (UA) NEGATIVE NEGATIVE mg/dL Urine Ketones NEGATIVE NEGATIVE mg/dL Urine Occult Blood NEGATIVE NEGATIVE Urine Nitrate NEGATIVE NEGATIVE Urine Bilirubin NEGATIVE NEGATIVE mg/dL Urine Urobilinogen 0.2 0.2-1.0 mg/dL Urine Leukocyte Esterase 75 H NEGATIVE [place]/uL Urine RBC 2-5 H 0-1 /HPF Urine WBC 11-25 H 0-1 /HPF Urine Squamous Epithelial Cells MANY 0-2 /HPF Urine Bacteria FEW None Seen /HPF Blood Gas Specimen Type Venous Arterial Blood Oxygen Saturation 81.1 L 94.0-98.0 % Venous Blood pH 7.405 7.320-7.430 Venous Blood pCO2 at Patient Temp 38 38-54 Venous Blood pO2 at Patient Temp 42.7 23.0-48.0 mmHg Venous Blood HCO3 23.0 22.0-29.0 Venous Blood Base Excess -1.3 -2.0-3.0 Venous Blood Total Hemoglobin 16.1 H 12.0-16.0 Sodium (Blood Gas) 140 136-145 MMOL/L Bedside Potassium (Blood Gas) 4.8 H 3.4-4.5 MMOL/L Bedside Chloride (Blood Gas) 103 98-107 MMOL/L Bedside Glucose (Blood Gas) 114 H 65-95 MG/DL Bedside Ionized Calcium (Blood Gas) 1.11 L 1.15-1.33 MMOL/L Bedside Lactic Acid (Blood Gas) 1.35 H 0.36-0.75 MMOL/L Blood Gas Temperature 37.0 35.5-37.0 CELSIUS Blood Gas Vent Mode RA ROOM AIR FiO2 21.0 % Blood Gas Specimen Comment NANO EMELY ECG 04/11/2024: Sinus rhythm. Normal R-wave progression. No ST elevation or depression noted. Assessment: 1. Hypertensive urgency 2. UTI 3. Chest pain 4. Dizziness/near-syncope Plan: 1. Hypertensive urgency -max BP in the ED 172/64 mm Hg -currently 166/77 mm Hg -the patient presents with dizziness, of one-week induration. During this timeframe her symptoms have been constant, and have occurred on a daily basis. Associated symptoms include near-syncope, aphasia, and one episode of chest pain. -the etiology behind her symptoms is thought to be secondary to poorly controlled/unknown hypertension. She is pending a neurology evaluation. Once a TIA/ischemic CVA has been ruled out, then we recommend starting losartan 25 mg BID to control the patients blood pressure 2. Chest pain -Stable -ECG 04/11/2024: Sinus rhythm. Normal R-wave progression. No ST elevation or depression noted. -laboratory data: High sensitivity troponin I - Five -the patient presents with dizziness, of one-week induration. This morning she developed chest pain that was described as sharp in quality, 4-10 intensity radiation to the left shoulder. Her symptoms lasted approximately 1 hour and resolved without any specific treatment. The etiology behind her chest pain is unknown, but may be related to hypertensive urgency. In order to further evaluate this issue we recommend that the patient undergo an echocardiogram and a Lexiscan stress test. In addition the patient should be started on aspirin 81 mg daily and atorvastatin 10 mg qhs Thank you for this interesting consult and allowing us to participate in the care of your patient. Further recommendations to follow. PA LINDO MD Apr 11, 2024 15:12
--- NOTE | 2024-04-11 17:13 | NUR ---
PER PT DOES NOT TAKE MEDICATIONS, NO HOME MEDS.
--- NOTE | 2024-04-11 18:14 | NUR ---
NO POTASSIUM COVERAGE NEEDED FOR NOW PER DR. BECKER. CURRENT KCL 3.6
--- NOTE | 2024-04-11 19:28 | CONS ---
CONSULTATION NOTE Date of Service: Apr 11, 2024 Reason for Consultation: Evaluation of stuttering Requesting Physician: Hospitalist HISTORY OF PRESENT ILLNESS: This is a very nice 63 years old right-handed lady that has a past medical histo ry remarkable for obesity dyslipidemia, essential hypertension who was admitted for evaluation and management of chest pain in association with lightheadedness and difficulty speaking. The patient states that about one week ago she had a sudden onset of dizziness mostly described as a room spinning sensation that lasted for about 30 minutes with complete resolution of her symptomatology. Since then the patient started having intermittent episodes of lightheadedness in association with constant blurry vision. On Monday the patient had difficulty speaking mostly described as a word-finding difficulty and stuttering that lasted for 24 hours. Because the patient was having chest pain in association with shortness of breath and lightheadedness she is headed to come to our emergency room. Of note the patient has been under severe stress. REVIEW OF SYSTEMS CONSTITUTIONAL: Denies fever, chills, or fatigue. HEAD/FACE: No signs of trauma. EENT: Denies eye pain, blurred vision, double vision, or light sensitivity. RESPIRATORY: Denies shortness of breath, cough, wheezing CARDIOVASCULAR: Chest pain, lightheadedness. GASTROINTESTINAL/ABDOMINAL: Denies abdominal pain, constipation, diarrhea, nausea or vomiting GENITOURINARY: Denies dysuria or hematuria. MUSCULOSKELETAL: Denies joint pain, tenderness, or trauma. INTEGUMENTARY: Denies rash or itchiness NEUROLOGICAL/PSYCH: Anxiety, stress, PAST MEDICAL HISTORY: As above PAST SURGICAL HISTORY: Noncontributory PAST SOCIAL HISTORY: No tobacco alcohol recreational drug abuse FAMILY HISTORY: No family history of stroke Coded Allergies: No Known Drug Allergies (Unverified Allergy, Unknown, 04/11/24) PHYSICAL EXAM Mental status: The patient is alert, attentive, and oriented. Speech is clear and fluent with good repetition, comprehension, and naming. Pt recalls 3/3 objects at 5 minutes. Cranial nerves: CN II: Visual gutierrez are full to confrontation. CN III, IV, : At primary gaze, there is no eye deviation. CN V: Facial sensation is intact to pinprick in all 3 divisions bilaterally. Corneal responses are intact. CN VII: Face is symmetric with normal eye closure and smile. CN VIII: Hearing is normal to rubbing fingers CN IX, X: Palate elevates symmetrically. Phonation is normal. CN XI: Head turning and shoulder shrug are intact CN XII: Tongue is midline with normal movements and no atrophy. Motor: There is no pronator drift of out-stretched arms. Muscle bulk and tone are normal. Strength is full bilaterally. Reflexes: Reflexes are 2+ and symmetric at the biceps, triceps, knees, and ankles. Plantar responses are flexor. Sensory: Light touch, pinprick, position sense, and vibration sense are intact in fingers and toes. Coordination: Rapid alternating movements and fine finger movements are intact. There is no dysmetria on [id number] and wvot-rjfq-[id number]. There are no abnormal or extraneous movements. Romberg is absent. Gait/Stance: Not evaluated Vital Sign (Last 24 Hours) 04/11/24 18:35 Temp 98.1 Pulse 77 Resp 17 B/P (MAP) 142/63 Pulse Ox 98 O2 Delivery Room Air* O2 Flow Rate 0 FiO2 21 LABS: Laboratory: Test 04/11/24 12:13 04/11/24 10:06 04/11/24 09:13 Range/Units Blood Gas Specimen Type Venous Arterial Blood Oxygen Saturation 81.1 L 94.0-98.0 % Venous Blood pH 7.405 7.320-7.430 Venous Blood pCO2 at Patient Temp 38 38-54 Venous Blood pO2 at Patient Temp 42.7 23.0-48.0 mmHg Venous Blood HCO3 23.0 22.0-29.0 Venous Blood Base Excess -1.3 -2.0-3.0 Venous Blood Total Hemoglobin 16.1 H 12.0-16.0 Sodium (Blood Gas) 140 136-145 MMOL/L Bedside Potassium (Blood Gas) 4.8 H 3.4-4.5 MMOL/L Bedside Chloride (Blood Gas) 103 98-107 MMOL/L Bedside Glucose (Blood Gas) 114 H 65-95 MG/DL Bedside Ionized Calcium (Blood Gas) 1.11 L 1.15-1.33 MMOL/L Bedside Lactic Acid (Blood Gas) 1.35 H 0.36-0.75 MMOL/L Blood Gas Temperature 37.0 35.5-37.0 CELSIUS Blood Gas Vent Mode RA ROOM AIR FiO2 21.0 % Blood Gas Specimen Comment NANO EMELY Urine Color LIGHT-YELLOW YELLOW Urine Appearance CLOUDY H CLEAR Urine pH 6.0 5.0-8.0 Urine Specific [place] 1.019 1.001-1.031 Urine Protein 20 H NEGATIVE mg/dL Urine Glucose (UA) NEGATIVE NEGATIVE mg/dL Urine Ketones NEGATIVE NEGATIVE mg/dL Urine Occult Blood NEGATIVE NEGATIVE Urine Nitrate NEGATIVE NEGATIVE Urine Bilirubin NEGATIVE NEGATIVE mg/dL Urine Urobilinogen 0.2 0.2-1.0 mg/dL Urine Leukocyte Esterase 75 H NEGATIVE Salvador/uL Urine RBC 2-5 H 0-1 /HPF Urine WBC 11-25 H 0-1 /HPF Urine Squamous Epithelial Cells MANY 0-2 /HPF Urine Bacteria FEW None Seen /HPF White Blood Count 8.1 4.8-10.8 K/uL Red Blood Count 4.98 4.00-5.50 MIL/uL Hemoglobin 15.6 12.0-16.0 g/dL Hematocrit 45.6 36-48 % Mean Corpuscular Volume 91.6 79-99 fL Mean Corpuscular Hemoglobin 31.3 27.0-33.0 pg Mean Corpuscular Hemoglobin Concent 34.2 32.0-36.0 g/dL Red Cell Distribution Width 12.9 11.0-15.5 % Platelet Count 278 130-400 K/uL Mean Platelet Volume 10.2 7.5-10.5 fL Immature Granulocyte % (Auto) 0.4 0-1 % Neutrophils (%) (Auto) 49.6 40.0-77.0 % Lymphocytes (%) (Auto) 40.1 21.0-51.0 % Monocytes (%) (Auto) 7.3 3.0-13.0 % Eosinophils (%) (Auto) 1.9 0.0-8.0 % Basophils (%) (Auto) 0.7 0.0-5.0 % Neutrophils # (Auto) 4.0 1.8-7.7 K/uL Lymphocytes # (Auto) 3.2 1.0-4.8 K/uL Monocytes # (Auto) 0.6 0.1-1.0 K/uL Eosinophils # (Auto) 0.15 0.00-0.70 K/uL Basophils # (Auto) 0.06 0.00-0.20 K/uL Absolute Immature Granulocyte (auto 0.03 0-1 K/uL Nucleated Red Blood Cells 0.0 0.0-0.19 % Erythrocyte Sedimentation Rate 16 0-30 MM/HR Prothrombin Time 11.2 9.6-11.6 SEC Prothromb Time International Ratio 1.06 0.85-1.15 Activated Partial Thromboplast Time 30.0 26.3-35.5 SEC Sodium Level 140 136-145 mmol/L Potassium Level 3.6 3.5-5.1 mmol/L Chloride Level 102 101-111 mmol/L Carbon Dioxide Level 35 H 21-32 mmol/L Blood Urea Nitrogen 11 7-18 mg/dL Creatinine 0.8 0.5-1.0 mg/dL Glomerular Filtration Rate Calc 84 >90 mL/min Random Glucose 151 H 70-105 mg/dL Hemoglobin A1c 6.4 H 4.0-6.0 % Estimated Average Glucose (eAG) 137 H 70-126 mg/dL Total Calcium 9.0 8.5-10.1 mg/dL Magnesium Level 2.00 1.80-2.40 mg/dL Total Bilirubin 0.8 0.2-1.0 mg/dL Direct Bilirubin 0.2 0.0-0.3 mg/dL Aspartate Amino Transf (AST/SGOT) 52 H 10-37 U/L Alanine Aminotransferase (ALT/SGPT) 71 12-78 U/L Alkaline Phosphatase 145 H 50-136 U/L Troponin I High Sensitivity 5 4-50 ng/L C-Reactive Protein, Quantitative 12.80 H 0.5-3.0 mg/L B-Type Natriuretic Peptide 21 0-100 pg/mL Total Protein 8.4 H 6.0-8.3 g/dL Albumin 4.0 3.5-5.0 g/dL Triglycerides Level 118 30-200 mg/dL Cholesterol Level 204 H <200 mg/dL LDL Cholesterol 135 H 0-99 mg/dL HDL Cholesterol 57 35-85 mg/dL Procalcitonin < 0.05 L 0.05-0.5 ng/mL Thyroid Stimulating Hormone (TSH) 2.35 0.36-3.74 uIU/mL DIAGNOSTICS / RADIOLOGY: MRI of the brain without contrast: Negative for acute ischemic strokes ASSESSMENT / PLAN: 1).- anxiety/panic attacks - based on the patient's history and physical examination it is likely this patient has not anxiety panic attack causing stuttering and word-finding difficulty rather than TIA or stroke. The patient was educated about her diagnosis and expressed understanding. Because of the duration of the event and a negative MRI it is unlikely for this to be a cerebrovascular disease/event. No further tests are needed from the neurological standpoint at this time. Thank you for your consultation I will sign off MANNY BREWER MD Apr 11, 2024 19:28
[2024-04-11] MEDS: atorVAStatin 10 MG TABLET PO SCH (19:45)
[2024-04-11] MEDS: LoSARTan 25 MG TABLET PO SCH (19:45)
[2024-04-12 04:02] VITALS: BP 145/72; PULSE 79; RESP 20; TEMP 98.5
[2024-04-12 06:13] LABS: BASOPHILS # (AUTO) 0.07 K/uL (0.00-0.20); BASOPHILS % (AUTO) 0.8 % (0.0-5.0); EOSINOPHILS # (AUTO) 0.16 K/uL (0.00-0.70); EOSINOPHILS % (AUTO) 1.8 % (0.0-8.0); HEMATOCRIT 40.2 % (36-48); IMMATURE GRANULOCYTE ABSOLUTE 0.03 K/uL (0-1); LYMPHOCYTES # (AUTO) 2.8 K/uL (1.0-4.8); LYMPHOCYTES % (AUTO) 30.6 % (21.0-51.0); MEAN CORPUSCULAR HEMOGLOBIN 31.3 pg (27.0-33.0); MEAN CORPUSCULAR HGB CONC 34.8 g/dL (32.0-36.0); MEAN CORPUSCULAR VOLUME 89.9 fL (79-99); MONOCYTES # (AUTO) 0.9 K/uL (0.1-1.0); MONOCYTES % (AUTO) 9.3 % (3.0-13.0); NEUTROPHILS # (AUTO) 5.2 K/uL (1.8-7.7); NEUTROPHILS % (AUTO) 57.2 % (40.0-77.0); PLATELET COUNT (AUTO) 250 K/uL (130-400); RED BLOOD CELL COUNT(AUTO) 4.47 MIL/uL (4.00-5.50); WHITE BLOOD COUNT (AUTO) 9.1 K/uL (4.8-10.8)
[2024-04-12 06:18] LABS: CREATININE 0.8 mg/dL (0.5-1.0); MAGNESIUM 1.9 mg/dL (1.80-2.40); POTASSIUM 3.9 mmol/L (3.5-5.1)
[2024-04-12 08:00] VITALS: BP_SYST 143; BP_SYST 154; BP_SYST 157; BP_DIAS 78; BP_DIAS 79; BP_DIAS 92; PULSE 84; PULSE 86; RESP 18; TEMP 97.6
[2024-04-12] MEDS ORDERED: REGADENOSON 0.4 MG/5 ML PF SYG IVP ONE (08:08)
[2024-04-12] MEDS ORDERED: LoSARTan 50 MG TABLET PO SCH (09:00)
[2024-04-12] MEDS: ASPIRIN 81 MG EC TAB PO SCH (09:43)
[2024-04-12] MEDS: ENOXAPARIN SODIUM 40 MG/0.4 ML SYRINGE SQ SCH (09:44)
[2024-04-12] MEDS ORDERED: LOSA-417 PO (11:36)
[2024-04-12] MEDS ORDERED: AEC81 PO (11:36)
[2024-04-12] MEDS ORDERED: ATOR10 PO (11:36)
[2024-04-12] MEDS ORDERED: CEFD300C3 PO (11:37)
--- NOTE | 2024-04-12 11:46 | DS ---
Discharge Summary Hospital Course Summary: 63-year-old female with underlying history of obesity, presented to the ER for further evaluation of dizziness and vertiginous symptoms and chest pain. Patient states that symptoms of dizziness has been ongoing for the past one week. She reports having Lightheadedness with exertional activities. She also has noticed vertiginous symptoms when she changes positions fast. Symptoms have not been resolving prompting her to come to the ER for further evaluation. She denies any significant weakness of upper or lower extremities. Denies any previous history of cardiac or neurologic comorbidities. Patient states that while she was coming to the ER, she noticed she started having left-sided chest pain/chest pressure lasting for about 45 minutes moderate in intensity. The pain was going into her left shoulder and patient denies any previous symptoms of chest pain. 04/12/2024. Patient was evaluated by nephrologists MRI was negative. Ruled out TIA and stroke as per Dr Lacy note: anxiety/panic attacks - based on the patient's history and physical examination it is likely this patient has not anxiety panic attack causing stuttering and word-finding difficulty rather than TIA or stroke. Patient was seen by drivematic machine operator's patient underwent Lexiscan and echo. Recommendations losartan aspirin and statin upon discharge and to follow-up heart clinic 1-2 weeks. Risk factor modification was discussed lifestyle changes diet and exercise. All questions were addressed. The patient is clinically stable for discharge. No chest pain events over 24 hours. Reaming Press Operator(s): REASON: dizziness, vertigo x 1 weeks, trouble finding words, r/o acute CVA ORDERING PHYSICIAN: SAIDE BECKER MD PROCEDURE: BRAIN WO - MR BRAIN WO CON MR BRAIN WO CON HISTORY: Dizziness and vertigo COMPARISON: None TECHNIQUE: MRI of the brain was performed utilizing multiple pulse sequences in axial, coronal and sagittal planes. Patient was not given contrast through intravenous route. FINDINGS: The ventricles and extraventricular CSF spaces are nondilated for patient's age. There is no midline shift, mass effect or herniation. No subacute hemorrhage is seen. No MR evidence of acute infarct is seen in the diffusion weighted images. Cerebellar tonsils are in normal position. No evidence of mucoperiosteal thickening is seen of the visualized paranasal sinuses. No MR evidence of a mass lesion is seen in this noncontrast study. IMPRESSION: 1. No MR evidence of acute infarct is seen in the diffusion weighted images. REASON: assess for flow limiting carotid artery stenosis, persistent dizziness ORDERING PHYSICIAN: SADIE BECKER MD PROCEDURE: CAROTID - US CAROTID DUPLEX US CAROTID DUPLEX HISTORY: Persistent dizziness COMPARISON: None TECHNIQUE: Duplex carotid arterial Doppler ultrasound study was performed. REASON: Dizziness since 7 days ORDERING PHYSICIAN: FLOR GILL MD PROCEDURE: HEAD WO - CT HEAD/BRAIN W/O CONTRAST CT HEAD/BRAIN W/O CONTRAST HISTORY: Dizziness COMPARISON: None TECHNIQUE: Multiple sequential axial images of the head were obtained from the base of the skull through vertex. Patient was not given contrast through intravenous route. FINDINGS: The ventricles and extraventricular CSF spaces are nondilated for patient's age. There is no midline shift, mass effect or herniation. No acute intracranial bleed is seen. Visualized portion of the paranasal sinuses are grossly within normal limits. IMPRESSION: 1. No acute intracranial bleed is seen. FINDINGS: The common, internal and external carotid arteries are visualized. The peak systolic velocities of right common carotid artery is 69 centimeters per second, right internal carotid artery is 107 centimeters per second, right external carotid artery is 100 centimeters per second, and right vertebral artery is 37 centimeters per second. Right internal carotid artery to right common carotid artery ratio is 1.6. Right vertebral artery is seen with antegrade flow. The peak systolic velocities of left common carotid artery is 668 centimeters per second, left internal carotid artery is 8 centimeters per second, left external carotid artery is 65 centimeters per second, and left vertebral artery is 29 centimeters per second. Left internal carotid artery to left common carotid artery ratio is 1.3. Left vertebral artery is seen with antegrade flow. There are bilateral echogenic plaques. IMPRESSION: 1. No hemodynamically significant lesion is seen of either extracranial carotid artery system. REASON: Dizziness since 7 days ORDERING PHYSICIAN: FLOR GILL MD PROCEDURE: HEAD WO - CT HEAD/BRAIN W/O CONTRAST CT HEAD/BRAIN W/O CONTRAST HISTORY: Dizziness COMPARISON: None TECHNIQUE: Multiple sequential axial images of the head were obtained from the base of the skull through vertex. Patient was not given contrast through intravenous route. FINDINGS: The ventricles and extraventricular CSF spaces are nondilated for patient's age. There is no midline shift, mass effect or herniation. No acute intracranial bleed is seen. Visualized portion of the paranasal sinuses are grossly within normal limits. IMPRESSION: 1. No acute intracranial bleed is seen. Procedure(s): Item Value Date Time White Blood Count 9.1 K/uL 04/12/24 05 Red Blood Count 4.47 MIL/uL 04/12/24 0559 Hemoglobin 14.0 g/dL 04/12/24 05 Hematocrit 40.2 % 04/12/24558 Mean Corpuscular Volume 89.9 fL 04/12/24558 Mean Corpuscular Hemoglobin 31.3 pg 04/12/24558 Mean Corpuscular Hemoglobin Concent 34.8 g/dL 04/12/24558 Red Cell Distribution Width 13.0 % 04/12/24558 Mean Platelet Volume 10.3 fL 04/12/24 05 Platelet Count 250 K/uL 04/12/24 05 Immature Granulocyte % (Auto) 0.3 % 04/12/24 05 Neutrophils (%) (Auto) 57.2 % 04/12/24 05 Lymphocytes (%) (Auto) 30.6 % 04/12/24 05 Monocytes (%) (Auto) 9.3 % 04/12/24 05 Eosinophils (%) (Auto) 1.8 % 04/12/24 05 Basophils (%) (Auto) 0.8 % 04/12/24 05 Neutrophils # (Auto) 5.2 K/uL 04/12/24 0559 Lymphocytes # (Auto) 2.8 K/uL 04/12/24 0559 Monocytes # (Auto) 0.9 K/uL 04/12/24 0559 Eosinophils # (Auto) 0.16 K/uL 04/12/24 0559 Basophils # (Auto) 0.07 K/uL 04/12/24 0559 Absolute Immature Granulocyte (auto 0.03 K/uL 04/12/24 0559 Nucleated Red Blood Cells 0.0 % 04/12/24 05 Erythrocyte Sedimentation Rate 16 MM/HR 04/11/24 0913 Sodium Level 139 mmol/L 04/12/24 05 Potassium Level 3.9 mmol/L 04/12/24 0559 Chloride Level 105 mmol/L 04/12/24 05 Carbon Dioxide Level 28 mmol/L 04/12/24 05 Blood Urea Nitrogen 13 mg/dL 04/12/24 05 Creatinine 0.8 mg/dL 04/12/24 0559 Glomerular Filtration Rate Calc 84 mL/min 04/12/24 0559 Random Glucose 149 mg/dL H 04/12/24 0559 Hemoglobin A1c 6.4 % H 04/11/24 0913 Estimated Average Glucose (eAG) 137 mg/dL H 04/11/24 0913 Magnesium Level 1.90 mg/dL 04/12/24 0559 Troponin I High Sensitivity 7.3 ng/L 04/11/24 2046 Troponin I High Sensitivity 8.7 ng/L 04/12/24 0143 Total Creatine Kinase 228 U/L 04/11/24 2046 Total Creatine Kinase 197 U/L 04/12/24 0143 Procalcitonin < 0.05 ng/mL L 04/11/24 0913 Urine Color LIGHT-YELLOW 04/11/24 1006 Urine Appearance CLOUDY H 04/11/24 1006 Urine pH 6.0 04/11/24 1006 Urine Specific [place] 1.019 04/11/24 1006 Urine Protein 20 mg/dL H 04/11/24 1006 Urine Glucose (UA) NEGATIVE mg/dL 04/11/24 1006 Urine Ketones NEGATIVE mg/dL 04/11/24 1006 Urine Occult Blood NEGATIVE 04/11/24 1006 Urine Nitrate NEGATIVE 04/11/24 1006 Urine Bilirubin NEGATIVE mg/dL 04/11/24 1006 Urine Urobilinogen 0.2 mg/dL 04/11/24 1006 Urine Leukocyte Esterase 75 [place]/uL H 04/11/24 1006 Urine RBC 2-5 /HPF H 04/11/24 1006 Urine WBC 11-25 /HPF H 04/11/24 1006 Urine Squamous Epithelial Cells MANY /HPF 04/11/24 1006 Urine Bacteria FEW /HPF 04/11/24 1006 Assessment/Plan: discharged dx's; Persistent nonresolving dizziness/lightheadedness with vertiginous symptoms, POA Mild urinary tract infection, POA Uncontrolled hypertension, POA Obesity, POA Suspected obstructive sleep apnea, POA Family history of coronary artery disease, POA Chest pain x1 day, POA anxiety/panic attacks POA PLAN: ADMISSION DATE: DISCHARGE DATE: 04/12/2024 DISPOSITION: home CONDITION: stable EDUCATIONAL RESOURCE CENTER TEACHER(S): Nephrologists, drivematic machine operator's FOLLOW UP APPOINTMENT(S): PROCEDURES: Lexiscan, IMAGING (S) report attached to summary : Echo, carotid Dopplers, brain MRI, head CT MICROBIOLOGY: report attached to summary; urine ACTIVITY: Ad pedro luis HOME MEDICATIONS none profile NEW MEDICATIONS mg p.o. b.i.d., [id number] mg p.o. daily, atorvastatin 10 mg p.o. bedtime, cefdinir 300 mg p.o. b.i.d. for five days TEACHING: Side effects and adverse reactions of medication. Instructed patient to monitor blood pressure and to record a log and present to drivematic machine operator's on follow-up appointment. Risk factor modification lifestyle changes diet and exercise was discussed Emergency instructions: The patient was instructed to present to the nearest Emergency Department or call 911 should their symptoms return or worsen. New Medications: Cefdinir (Cefdinir) 300 Mg Capsule 1 CAP PO BID for 5 Days, #5 CAP 0 Refills Aspirin (Aspirin 81 Mg Ectab) 81 Mg Ectab 81 MG PO DAILY for 30 Days, #30 TAB.EC Atorvastatin Calcium (Lipitor) 10 Mg Tab 10 MG PO HS for 30 Days, #30 TAB Losartan Potassium (Cozaar) 25 Mg Tablet 25 MG PO BID for 30 Days, #60 TAB Time spent arranging discharge: 31-60 minutes ATTESTATION BY PHYSICIAN I have seen and examined the patient. I reviewed the documentation, medical decision making, and treatment plan as noted by the mid-level provider above. I agree with the findings and plan of care. TUNG CARRANZA MD, ELIZABETH NP Apr 12, 2024 11:46
[2024-04-12 12:00] VITALS: BP 154/78; PULSE 78; RESP 19; TEMP 97.8
--- NOTE | 2024-04-12 13:49 | PN ---
Cardiology Progress Note Date of Service: 04/12/2024 Attending Creative Services Specialist: Dr. Sam Lindo Reason for Consult: Chest pain Problem List: -Hypertensive urgency -Dizziness/near-syncope -UTI -Chest pain -Normal LV systolic function (LVEF: 55-60% by echo done 04/12/2024) -HLP -Morbid obesity Subjective: This is a 63y/o female who was seen and evaluated at the bedside today. The patient denies any active complaints including recurrent dizziness/near syncope, chest pain, chest pressure, palpitations, or shortness of breath. There were no overnight reported events. Vitals/Labs Vital Signs Date Time Temp Pulse Resp B/P (MAP) Pulse Ox O2 Delivery O2 Flow Rate FiO2 04/12/24 12:00 97.9 78 19 154/78 96 Room Air 04/12/24 05:45 0 21 General: Awake and alert. No acute distress. HEENT: Normocephalic, atraumatic. EOMI. PERRL. Oral mucosa was moist. Neck: No masses, JVD or carotid bruits noted. Lungs: No respiratory distress. SCM. Bilaterally clear to auscultation. No obvious wheezing, rales, or rhonchi. Cardio: Regular rate. Normal S1 and S2, +S4. No obvious murmurs, rubs, or gallops. Abdomen: Obese abdomen. Soft, non-tender, non-distended. No organomegaly. Normal active bowel sounds x 4 quadrants. Extremities: No edema, clubbing, or cyanosis. +2 pulses noted throughout. Neuro: CN II-XII were grossly intact. No obvious focal deficits. Laboratory Tests 04/12/24 05:59 Assessment: -Hypertensive urgency -Dizziness/near-syncope -UTI -Chest pain -Normal LV systolic function (LVEF: 55-60% by echo done 04/12/2024) -HLP -Morbid obesity Plan: 1. Hypertensive urgency -Improved -12H BP range: 120-157/60-92 mmHg -The patient will continue on losartan 25 mg BID. 2. Chest pain -Stable -Cardiac enzymes-HS troponin I: 5>7.3>8.7 -2D echocardiogram 04/12/2024: LV systolic function is normal with an estimated LVEF of 55-60% with no regional wall motion abnormalities noted. -Lexiscan stress test: Pending -The patient denies any recurrent chest pain, chest pressure, palpitations, or shortness of breath. -The patient will continue on aspirin 81 mg daily and atorvastatin 10 mg QHS. -If the stress test is normal or identifies artifact or fixed perfusion defects, she can be discharged home today and follow up with Cardiology 2 weeks after discharge, but if the stress test is abnormal and identifies reversible perfusion defects we will need to discuss whether to keep the patient over the weekend so she can undergo a C/coronary angiogram with possible intervention on Monday or defer further ischemic evaluation to the outpatient setting. SAM LINDO MD Apr 12, 2024 13:49
--- NOTE | 2024-04-12 13:56 | NUR ---
DCP CM MET WITH PT THIS MORNING ASSESSMENT DONE. PATIENT IS INDEPENDENT PRIOR TO ADMISSION, LIVES AT HOME WITH SPOUSE. DENIES ANY EQUIPMENT/SERVICES. USES [email or web address]. FEEL SAFE TO GO BACK HOME, STILL WORK AND DRIVE, SPOUSE ABLE TO ASSIST WITH TRANSPORTATION AND NEEDS NECESSARY. DCP HOME ONCE STABLE. CM TO CONTINUE TO FOLLOW UP. Addendum: 04/12/24 at 1358 by CHANDLER PIZANO LVN CM Amended: Links added.
--- NOTE | 2024-04-12 15:39 | HMCSR ---
APPROVED REPORT Height: 5 ft 6in Weight: 266 lbs TEST INDICATIONS Chest Pain The imaging protocol used to acquire images was Rest Tc-99m/stress Tc-99m 1 day Consent: The procedure was explained and understood by the patient. Informerd consent was witnessed Mike Vann RN First, low dose rest was performed then high dose stress. RESTING DATA: The resting ekg shows: NSR Rest SPECT myocardial perfusion imaging was performed in supine position minutes [place] [address] mCi of Tc-99 Sestamibi. Time of rest injection: 06:52: Date: 04/12/2024 PHARMACOLOGIC STRESS: Pharmacologic stress test was performed by injecting regadenoson 0.4 mg IV push followed by the intra venous injection of 24.5 mCi of Tc-99 Sestamibi. Time of stress injection: 08:48: Date: 04/12/2024 Heart Rate at time of stress injection: 68 bpm. The images were gated to evaluate regional wall motion and calculate left ventricular ejection fracti on. STRESS DETAILS Reason for Termination: Infusion complete Stress Symptoms: Dyspnea Max HR Achieved: 94 bpm % of APMHR Achieved: 69 Max Blood Pressure: 176/63 mmHg Stress ECG: NSR Study quality was good. Lung uptake was Normal. Artifact: No artifact IMPRESSION Normal pharmacologic nuclear stress test. Conclusion Normal perfusion. LVEF 66%. Abnormal TID 1.65, recommend outpatient CCTA.
--- NOTE | 2024-04-12 15:41 | HMCSR ---
APPROVED REPORT EXAM: Two-dimensional and M-mode echocardiogram with Doppler and color Doppler. INDICATION ICD: Chest pain R07.9 2D Dimensions RVDd3.8 cmLVEF(%)76.4 (>50%)LVEF(%, simp.)51 % IVSd1.1 (0.7-1.1cm)FS(%)45 %LA ESV INDEX (BP)21.74 mL/m2 LVDd4.3 (3.8-5.6cm)LA (2D)3.8 (1.6-4.0cm) PWd1.3 (0.7-1.1cm)Ao Root(2D)2.8 (2.0-3.7cm) IVSs1.5 cmLVOT diam2.1 (1.8-2.4cm) LVDs2.4 (2.5-4.0cm) PWs1.7 cm Deformation Strain Apical 4-18.0 % Apical 2-16.0 % Apical 3-17.0 % Global Strain-18.0 % M-Mode Dimensions EPSS1.2 cm LA (MM)3.7 (1.6-4.0cm) Ao Root(MM)2.9 (2.0-3.7cm) Aortic Valve AoV Vmax1.6 m/Patrica Peak GR10.0 mmHgLVOT Vmax1.0 m/s AoV VTI0.4 mAo Mean GR5.1 mmHgLVOT VTI0.24 m ZAHIDA (VMAX)2.2 cm2AVA (VTI) 2.2 cm2 Mitral Valve MV E Vmax87.0 cm/sDECEL Mkom459 ms MV A Vmax96.3 cm/sP 1/2 T58 ms E/A ratio0.9MVA (PHT)3.8 cm2 Tricuspid Valve TR Vmax2.0 m/sRAP (EST) 3 uqFoVQIU18.1 mmHg TR Peak GR16.1 mmHg Left Ventricle The left ventricle is normal size. There is normal left ventricular wall thickness. LVEF is 50-55%. T he left ventricular diastolic function is normal. Right Ventricle The right ventricle is normal size. The right ventricular systolic function is normal. Atria The left atrium size is normal. The right atrium size is normal. Aortic Valve The aortic valve is normal in structure. No aortic regurgitation is present. There is no aortic valvu lar stenosis. Mitral Valve The mitral valve is normal in structure. There is no mitral valve regurgitation noted. There is no mi tral valve stenosis. Tricuspid Valve The tricuspid valve is normal in structure. There is trace of tricuspid valve regurgitation noted. Pulmonic Valve The pulmonary valve is normal in structure. There is no pulmonic valvular regurgitation. Great Vessels The aortic root is normal in size. The IVC is normal in size and collapses >50% with inspiration. Pericardium There is no pericardial effusion. Other Information Quality : Adequate Conclusion The left ventricle is normal size. LVEF is 50-55%. The left ventricular diastolic function is normal. The right ventricle is normal size. The right ventricular systolic function is normal. The left atrium size is normal. The right atrium size is normal. There is no pericardial effusion.
[2024-04-12 16:25] VITALS: O2SAT 99
== END 2024-04-12 17:10 | disposition home or self-care (01) ==
LOC: EDH 08:16 → INTOOBSV 08:17 → EDHIP 08:17 → 4DH 04-12 04:02
PROVIDERS: ADMIT Internal Medicine; ATTEND Internal Medicine
DX: I16.0 Hypertensive urgency (principal); R42 Dizziness and giddiness; R55 Syncope and collapse; N39.0 Urinary tract infection, site not specified; I10 Essential (primary) hypertension; E66.01 Morbid (severe) obesity due to excess calories; I25.10 Atherosclerotic heart disease of native coronary artery without angina pectoris; E78.5 Hyperlipidemia, unspecified; F41.0 Panic disorder [episodic paroxysmal anxiety]; Z68.42 Body mass index [BMI] 45.0-49.9, adult; Z90.49 Acquired absence of other specified parts of digestive tract; Z98.890 Other specified postprocedural states; Z79.899 Other long term (current) drug therapy
CPT/HCPCS: 96376; 96361; 99285; 83036; 84443; 82435; 82550 ×2; 80076; 82947; 83735 ×2; 84484 ×3; 84132; 84295; 80061; 80048 ×2; 82803; 83880; 85025 ×2; 85610; 85730; 85651; 87086; 83605; 86140; 81001; 36415 ×2; 71045; 70450; 93880; 70551; 93005; 36600; 84145; 96372; 96365; 93017; 78452; 93306; 93356; 97161; 97116; J0696 ×2; G0378 ×4; J1650; J2785; A9500 ×2; 96366